=== PATIENT | female | born 1980 | race African-American/Black ===

== ENCOUNTER 2017-10-21 10:46 | Emergency (ER) | payer BC ==
[~2017-10-21] VITALS: Ht 160 cm; Wt 86.2 kg
--- NOTE | ~2017-10-21 | EKG ---
[place] [address] [facility] [place] [address] ELECTROCARDIOGRAM REPORT Name: SASHA MEZA [id number] Admission: 10/21/17 Attend Phys: Discharge: 10/21/17 Date of : 76 Report #: [id number] THIS REPORT FOR: //name// [facility] ED Test Date: 2017-10-21 Test Time: 11:39:58 Pat Name: SASHA MEZA Department: Room: Gender: F Scanning Coordinator: [facility] : 1980 Requested By: Cira Doherty Order Number: [id number] MD: Steve Pace Measurements Intervals [place] Rate: 74 P: 26 UT: 175 QRS: 36 QRSD: 101 T: 5 QT: 409 QTc: 454 Interpretive Statements Sinus rhythm No significant abnormality Compared to ECG 10/22/2007 20:43:17 No significant changes Electronically Signed On 10-22-2017 15:28:23 [employer] by Steve Pace [email or web address] <ELECTRONICALLY SIGNED> By: Steve Pace MD, [facility] 10/22/17 1528 [id number] Steve Pace MD, FACC /EPI
[~2017-10-21 10:46] MED LIST: DIABETA 5MG TABL5 MG; IRON325
[2017-10-21] MEDS ORDERED: NORVASC5 MG PO (11:15)
[2017-10-21] MEDS ORDERED: MOBIC15 MG PO (11:43)
== END 2017-10-21 12:24 | disposition home or self-care (01) ==
LOC: ER 10:46
DX: K08.89 Other specified disorders of teeth and supporting structures (principal)